=== PATIENT | male | born 1970 ===

== ENCOUNTER 2017-02-26 12:39 | Emergency (ER) | payer MEDICAID, OTHER ==
[2017-02-26 12:58] VITALS: RESP 18; O2SAT 97
--- NOTE | 2017-02-26 13:49 | C.PDOC ---
History Of Present Illness 46 y/o male, who is otherwise well, comes in to ED with a mandate from the [place] [facility] requesting an alcohol assessment. This is in association to a child custody issue. He denies any complaints. Denies any headache, nausea, vomiting, fever, or chills. Time Seen by Provider: 02/26/17 13:04 Chief Complaint (Nursing): Psychiatric Evaluation History Per: Patient History/Exam Limitations: no limitations Past Medical History Reviewed: Historical Data, Nursing Documentation, Vital Signs Vital Signs: Last Vital Signs Temp 98 F 02/26/17 12:53 Pulse 76 02/26/17 12:53 Resp 18 02/26/17 12:53 BP 152/89 H 02/26/17 12:53 Pulse Ox 97 02/26/17 14:48 - Medical History PMH: No Chronic Diseases Other Surgeries: Neck surgery Family History: States: Unknown Family Hx - Social History Hx Alcohol Use: Yes Hx Substance Use: No - Immunization History Hx Tetanus Toxoid Vaccination: No Hx Influenza Vaccination: No Hx Pneumococcal Vaccination: No Review Of Systems Except As Marked, All Systems Reviewed And Found Negative. Constitutional: Negative for: Fever, Chills Gastrointestinal: Negative for: Nausea, Vomiting Neurological: Negative for: Headache Physical Exam - Physical Exam Appears: Non-toxic, No Acute Distress Skin: Normal Color, Warm, Dry Head: Atraumatic, Normacephalic Eye(s): bilateral: PERRL, Other (Conjunctival injection) Neck: Normal, Supple Cardiovascular: Rhythm Regular, No Murmur Respiratory: Normal Breath Sounds, No Accessory Muscle Use Neurological/Psych: Oriented x3, Normal Speech, Normal Cranial Nerves, Normal Motor, Normal Sensation Gait: Steady ED Course And Treatment O2 Sat by Pulse Oximetry: 97 (RA) Pulse Ox Interpretation: Normal Medical Decision Making Medical Decision Making: Discussed case with structural ironworker. Patient needs appointment at [facility]. Disposition Counseled Patient/Family Regarding: Need For Followup - Disposition Referrals: [facility] [Outside] Disposition: HOME/ ROUTINE Disposition Time: 15:13 Condition: STABLE Additional Instructions: Follow up as indicated. Forms: Gen Discharge Inst [place] - Clinical Impression Clinical Impression: Medical assessment - Scribe Statement The provider has reviewed the documentation as recorded by the Scribe (Pallavi Pena) All medical record entries made by the Scribe were at my direction and personally dictated by me. I have reviewed the chart and agree that the record accurately reflects my personal performance of the history, physical exam, medical decision making, and the department course for this patient. I have also personally directed, reviewed, and agree with the discharge instructions and disposition.
[2017-02-26 15:21] VITALS: BP 114/65; PULSE 62; TEMP 97.8
== END 2017-02-26 15:21 | disposition home or self-care (01) ==
LOC: C.ER 12:39
DX: Z04.8 Encounter for examination and observation for other specified reasons (principal)